=== PATIENT | female | born 1990 | race Two or more races ===

== ENCOUNTER 2018-06-14 15:39 | Inpatient (IN) | payer OTHER ==
[~2018-06-14] VITALS: Ht 157.5 cm; Wt 82.6 kg
[2018-06-28] MEDS ORDERED: PRENATABS RX T1 EACH PO (08:14)
== END 2018-06-30 18:05 | disposition home or self-care (01) | DRG 807 ==
LOC: LDR 06-27 22:25 → OB/GYN 06-27 22:25 → LDR 07-02 15:38
PROC: 10E0XZZ Delivery of Products of Conception, External Approach (ICD-10-PCS; principal; 2018-06-27)
PROC: 10907ZC Drainage of Amniotic Fluid, Therapeutic from Products of Conception, Via Natural or Artificial Opening (ICD-10-PCS; 2018-06-27)
PROC: 3E0P7VZ Introduction of Hormone into Female Reproductive, Via Natural or Artificial Opening (ICD-10-PCS; 2018-06-27)
PROC: 3E033VJ Introduction of Other Hormone into Peripheral Vein, Percutaneous Approach (ICD-10-PCS; 2018-06-27)
PROC: 4A1HXCZ Monitoring of Products of Conception, Cardiac Rate, External Approach (ICD-10-PCS; 2018-06-27)
PROC: 0UQGXZZ Repair Vagina, External Approach (ICD-10-PCS; 2018-06-27)
DX: O71.4 Obstetric high vaginal laceration alone (principal); Z37.0 Single live birth; Z3A.39 39 weeks gestation of pregnancy

== ENCOUNTER 2021-02-10 05:45 | Inpatient (IN) | payer OTHER ==
[~2021-02-10] VITALS: Ht 157.5 cm; Wt 83.0 kg
[~2021-02-10 05:45] MED LIST: PRENATABS RX T1 EACH PO
[2021-02-11] MEDS ORDERED: FUSION PLUS CA1 EACH (09:18)
== END 2021-02-12 12:13 | disposition home or self-care (01) | DRG 798 ==
LOC: LDR 05:45 → OB/GYN 05:45
PROVIDERS: ADMIT Specialist; ATTEND Specialist
PROC: 0UB70ZZ Excision of Bilateral Fallopian Tubes, Open Approach (ICD-10-PCS; 2021-02-10)
PROC: 4A1HXFZ Monitoring of Products of Conception, Cardiac Rhythm, External Approach (ICD-10-PCS; 2021-02-10)
PROC: 10E0XZZ Delivery of Products of Conception, External Approach (ICD-10-PCS; principal; 2021-02-10 12:00)
DX: O41.03X0 Oligohydramnios, third trimester, not applicable or unspecified (principal); Z37.9 Outcome of delivery, unspecified; Z30.2 Encounter for sterilization; Z3A.38 38 weeks gestation of pregnancy; Z20.822 Contact with and (suspected) exposure to COVID-19